=== PATIENT | female | born 1995 | race Caucasian/White ===

== ENCOUNTER 2019-11-05 17:43 | Emergency (ER) | payer BC ==
[~2019-11-05] VITALS: Ht 160 cm; Wt 81.8 kg
[2019-11-05 18:40] VITALS: BP 129/92
== END 2019-11-05 18:46 | disposition home or self-care (01) ==
LOC: ER 17:43
DX: Z03.818 Encounter for observation for suspected exposure to other biological agents ruled out (principal); J02.9 Acute pharyngitis, unspecified; F41.9 Anxiety disorder, unspecified; F32.9 Major depressive disorder, single episode, unspecified
CPT/HCPCS: 99281; 99283